=== PATIENT | female | born 1995 | race African-American/Black ===

== ENCOUNTER 2017-02-10 18:36 | Inpatient (IN) | payer MEDICAID ==
[~2017-02-10] VITALS: Ht 160 cm; Wt 59.0 kg
[2017-02-10] MEDS ORDERED: LACTATED RINGERS 1,000 ML IV SCH (18:40)
[2017-02-10] MEDS ORDERED: DEXT 5%/LR + PITOCIN 20UNITS/L 1,000 ML IV SCH (18:40)
[2017-02-10] MEDS ORDERED: NALOXONE HCL 0.4 MG/ML 1ML VIAL IM PRN (18:45)
[2017-02-10] MEDS ORDERED: FERR-63 PO (18:45)
[2017-02-10] MEDS ORDERED: PREN-88 PO (18:45)
[2017-02-10] MEDS ORDERED: METHYLERGONOVINE MALEATE 0.2 MG/ML IM PRN (18:45)
[2017-02-10] MEDS ORDERED: MISOPROSTOL 100MCG TABLET VG PRN (18:45)
[2017-02-10] MEDS ORDERED: BUTORPHANOL TARTRATE 2 MG/ML VIAL IV PRN (18:45)
[2017-02-10] MEDS ORDERED: LIDOCAINE HCL 1% 20ML VIAL (Pyxis) INJ INFIL PRN (18:45)
[2017-02-10] MEDS ORDERED: PENICILLIN G POTASSIUM 5 MMU in DEXT 5% WATER 100 ML IV NR (19:00)
[2017-02-10 19:19] LABS: CLARITY URINE CLOUDY (CLEAR); COLOR URINE YELLOW (YELLOW); GLUCOSE URINE NEGATIVE (NEGATIVE); KETONES URINE NEGATIVE (NEGATIVE); LEUKOCYTE ESTERASE URINE 1+ (NEGATIVE); NITRITE URINE NEGATIVE (NEGATIVE); OCCULT BLOOD URINE TRACE (NEGATIVE); PH URINE 6.5 (4.5-8.0); PROTEIN URINE 1+ (NEGATIVE); SPECIFIC GRAVITY URINE 1.021 (1.005-1.030)
[2017-02-10 19:27] LABS: BASOPHILS % 0.3 % (0.0-2.0); EOSINOPHILS % 0.3 % (0.0-5.0); HEMATOCRIT. 28.2 % (36.0-48.0); HEMOGLOBIN. 8.7 g/dL (12.0-16.0); LYMPHOCYTES % 14.1 % (20.0-50.0); MEAN CORPUSCULAR HEMOGLOBIN 21.5 pg (28.0-32.0); MEAN CORPUSCULAR HGB CONC 30.9 g/dL (31.0-37.0); MEAN CORPUSCULAR VOLUME 69.6 fL (81.0-99.0); MEAN PLATELET VOLUME 9.4 fl (7.4-10.4); MONOCYTES % 8.4 % (2.0-8.0); NEUTROPHILS % 76.9 % (40.0-76.0); PLATELET 205 x1000/uL (130-400); RED BLOOD CELL COUNT 4.06 mill/uL (4.2-5.4); RED CELL DISTRIBUTION WIDTH 16.5 % (11.6-14.6); WHITE BLOOD COUNT 12.9 x1000/uL (4.5-11.0)
[2017-02-10 19:32] LABS: ADD RBC MORPHOLOGY YES; DIFFERENTIAL COMMENT 1
[2017-02-10 19:33] LABS: *AMPHETAMINES SCREEN URINE NEGATIVE (NEGATIVE); *BARBITURATES SCREEN URINE NEGATIVE (NEGATIVE); *BENZODIAZEPINES SCREEN URINE NEGATIVE (NEGATIVE); *COCAINE SCREEN URINE NEGATIVE (NEGATIVE); CANNABINOID URINE SCREEN NEGATIVE (NEGATIVE); ECSTASY MDMA SCREEN URINE NEGATIVE (NEGATIVE); METHADONE URINE SCREEN NEGATIVE (NEGATIVE); OPIATES URINE SCREEN NEGATIVE (NEGATIVE); PHENCYCLIDINE URINE SCREEN NEGATIVE (NEGATIVE)
[2017-02-10 19:34] LABS: PARTIAL THROMBOPLASTIN TIME 30.1 sec (24.0-34.0); PROTHROMBIN TIME 10.7 sec
[2017-02-10 19:38] LABS: BACTERIA URINE 1+; RBC URINE 0-2 /hpf (0-2); SQUAMOUS EPITHELIAL CELL URINE 2+ /lpf (RARE/1+)
[2017-02-10 19:39] LABS: TRICHOMONAS URINE FEW
[2017-02-10 19:40] LABS: CALCIUM 8.4 mg/dL (8.5-10.1); CHLORIDE 105 mEq/L (98-107); INDEX HEMOLYSI 1 (1-3); INDEX ICTERIC 1 (1-4); INDEX LIPEMIC 1 (1-3)
[2017-02-10 19:41] LABS: ALBUMIN 2.8 g/dL (3.4-5.0); ANION GAP 15; CARBON DIOXIDE 23 mEq/L (21-32); UREA NITROGEN BLOOD 7 mg/dL (7-21)
[2017-02-10 19:46] LABS: ALANINE AMINOTRANSFERASE 12 IU/L (13-61); eGFR > 60 mL/min (>60)
[2017-02-10 20:02] LABS: HYPOCHROMASIA 2+; PLATELET ESTIMATE NORMAL
[2017-02-10 20:25] LABS: RUBELLA IGG 78.1 IU/mL (4.99-10)
[2017-02-10 20:26] LABS: HEPATITIS B SURFACE ANTIGEN NEGATIVE
[2017-02-10] MEDS ORDERED: PENICILLIN G POTASSIUM 2.5 MMU in DEXTROSE 5% WATER 50 ML IV SCH (23:00)
[2017-02-11] MEDS ORDERED: DEXT 5%/LR + PITOCIN 20UNITS/L 1,000 ML IV SCH (00:47)
[2017-02-11] MEDS ORDERED: LANOLIN OINT 0.25 GM TUBE TOP PRN (01:00)
[2017-02-11] MEDS ORDERED: IBUPROFEN 400MG TABLET PO PRN (01:00)
[2017-02-11] MEDS ORDERED: RHO(D) IMMUNE GLOBULIN 300 MCG/SYR IM PRN (01:00)
[2017-02-11] MEDS ORDERED: METHYLERGONOVINE MALEATE 0.2 MG/ML IM PRN (01:00)
[2017-02-11] MEDS: IBUPROFEN 800MG TABLET PO PRN ×2 (01:40→08:03)
[2017-02-11 02:30] VITALS: BP 106/67
[2017-02-11 03:00] VITALS: BP 95/66
[2017-02-11 03:30] VITALS: BP 112/63
[2017-02-11 07:56] VITALS: BP 108/68
[2017-02-11] MEDS: PRENATAL VIT/FE FUMARATE/FA TABLET PO SCH (08:04)
[2017-02-11 16:15] VITALS: BP 106/68
[2017-02-11 19:40] VITALS: BP 104/70
[2017-02-12] VITALS: BP 107/69
[2017-02-12 08:00] VITALS: BP 107/71
[2017-02-12 08:03] LABS: BASOPHILS % 0.2 % (0.0-2.0); DIFFERENTIAL COMMENT 1; EOSINOPHILS % 1.5 % (0.0-5.0); HEMATOCRIT. 24.8 % (36.0-48.0); HEMOGLOBIN. 7.7 g/dL (12.0-16.0); LYMPHOCYTES % 20.7 % (20.0-50.0); MEAN CORPUSCULAR HEMOGLOBIN 21.7 pg (28.0-32.0); MEAN CORPUSCULAR HGB CONC 31.1 g/dL (31.0-37.0); MEAN CORPUSCULAR VOLUME 69.8 fL (81.0-99.0); MEAN PLATELET VOLUME 9.2 fl (7.4-10.4); MONOCYTES % 8.1 % (2.0-8.0); NEUTROPHILS % 69.5 % (40.0-76.0); PLATELET 161 x1000/uL (130-400); RED BLOOD CELL COUNT 3.55 mill/uL (4.2-5.4); RED CELL DISTRIBUTION WIDTH 16.9 % (11.6-14.6)
[2017-02-12] MEDS: PRENATAL VIT/FE FUMARATE/FA TABLET PO SCH (09:13)
[2017-02-12] MEDS: FERROUS SULFATE 325MG TABLET PO SCH ×2 (13:00→15:41)
[2017-02-12 15:56] VITALS: BP 96/64
[2017-02-12 19:30] VITALS: BP 110/71
[2017-02-13 07:30] VITALS: BP 99/65
[2017-02-13] MEDS ORDERED: TETANUS, DIPHTHERIA, PERTUSSIS VAC/PF 0.5ML (>7YR OLD) IM ONE (09:00)
== END 2017-02-13 13:30 | disposition home or self-care (01) | DRG 560 ==
LOC: L&D 18:36 → OBSVTOIN 02-11 00:55 → 7EST PP/OB 02-11 02:17
PROVIDERS: ADMIT Obstetrics & Gynecology; ATTEND Obstetrics & Gynecology
PROC: 10E0XZZ Delivery of Products of Conception, External Approach (ICD-10-PCS; principal; 2017-02-11)
DX: O99.02 Anemia complicating childbirth (principal); D64.9 Anemia, unspecified; Z37.0 Single live birth; Z3A.38 38 weeks gestation of pregnancy
CPT/HCPCS: 36415; 76805; 76818; 80053; 80305; 81001; 85025; 85610; 85730; 86592; 86703; 86762; 86850; 86900; 87340; 90715; G0378; J0595; J2540; J2590; J3490; J7060; J7120